=== PATIENT | female | born 1930 | race Caucasian/White ===

== ENCOUNTER → 2017-03-09 | Outpatient (CLI) | payer OTHER ==
[~2017-03-09] MED LIST: CALCIUM500 M1; LIPITOR PO; LISINOPRIL10 MG PO; MULTI VITAMIN1 EACH PO; SYNTHROID0.15 MG PO
== END | disposition home or self-care (01) ==
LOC: CLAB 09:40
DX: M81.0 Age-related osteoporosis without current pathological fracture (principal); Z79.899 Other long term (current) drug therapy
CPT/HCPCS: 82310; 96372; J0897